=== PATIENT | male | born 1945 | race African-American/Black ===

== ENCOUNTER 2019-03-16 05:41 | Inpatient (IN) | payer OTHER ==
[2019-03-16] MEDS ORDERED: CEFAZOLIN 1 GM/50 ML (PMX) 50 ML IVPB (06:00)
[2019-03-16] MEDS: ONDANSETRON 4 MG INJ IV (07:17)
[2019-03-16] MEDS: oxyCODONE (CR) 10 MG TAB [oxyCONTIN] PO (07:17)
[2019-03-16] MEDS: LANSOPRAZOLE 30 MG CAP PO (07:17)
[2019-03-16] MEDS: LACTATED RINGER'S 1,000 ML IV (07:17)
[2019-03-16] MEDS: DEXAMETHASONE 4 MG/ML 1 ML INJ IV (07:18)
[2019-03-16] MEDS: ACETAMINOPHEN 500 MG TAB PO (07:18)
[2019-03-16] MEDS ORDERED: SEVOFLURANE 15 MIN (07:30)
[2019-03-16] MEDS: TRANEXAMIC ACID 1GM/100ML(PMX) 100 ML INTRA-OP X1 IVPB (07:30)
[2019-03-16] MEDS: TRANEXAMIC ACID 1GM/100ML(PMX) 100 ML PRE-OP X1 IVPB (07:30)
[2019-03-16] MEDS ORDERED: morphine SULFATE/PF (10 MG/10 ML) INJ (07:34)
[2019-03-16] MEDS ORDERED: PROPOFOL 20 ML (07:34)
[2019-03-16] MEDS ORDERED: ROPIVACAINE 0.5 % 30 ML VIAL (07:34)
[2019-03-16] MEDS ORDERED: MIDAZOLAM 1 MG/ML 2 ML INJ (07:34)
[2019-03-16] MEDS ORDERED: ROCURONIUM 50 MG INJ (07:34)
[2019-03-16] MEDS ORDERED: TRANEXAMIC ACID 1GM/100ML(PMX) 200 ML (08:36)
[2019-03-16] MEDS: POLYMYXIN B 500000 UNIT INJ (09:01)
[2019-03-16] MEDS: BACITRACIN 50000 UNITS INJ IRR (09:01)
[2019-03-16] MEDS: HIP PAIN COCKTAIL VANCO INJ (09:01)
[2019-03-16] MEDS ORDERED: CEFAZOLIN 1 GM INJ (09:44)
[2019-03-16] MEDS ORDERED: ONDANSETRON 4 MG INJ (09:44)
[2019-03-16] MEDS ORDERED: DEXAMETHASONE 4 MG/ML 5 ML INJ (09:44)
[2019-03-16] MEDS ORDERED: SUGAMMADEX SODIUM 200 MG/2 ML VIAL IV ×2 (09:44→11:00)
[2019-03-16] MEDS ORDERED: METOCLOPRAMIDE 10 MG INJ (09:44)
[2019-03-16] MEDS ORDERED: KETOROLAC 30 MG INJ (09:44)
[2019-03-16] MEDS ORDERED: PHENYLephrine (100 MCG/ML) 10ML SYG (09:45)
[2019-03-16] MEDS ORDERED: HETASTARCH 6% NACL 500 ML (09:49)
[2019-03-16] MEDS ORDERED: ALBUMIN HUMAN 5% 250 ML IV (10:00)
[2019-03-16] MEDS ORDERED: EPHEDrine 25 MG/5 ML SYG IV (10:00)
[2019-03-16] MEDS ORDERED: METOCLOPRAMIDE 10 MG INJ IV (10:00)
[2019-03-16] MEDS ORDERED: KETOROLAC 30 MG INJ IV (10:00)
[2019-03-16] MEDS ORDERED: ACETAMINOPHEN 500 MG TAB PO (10:00)
[2019-03-16] MEDS ORDERED: FENTAnyl 50 MCG/ML VIAL IV ×2 (10:00)
[2019-03-16] MEDS ORDERED: DIPHENHYDRAMINE 50 MG INJ IV ×2 (10:00)
[2019-03-16] MEDS ORDERED: OXYCODONE/ACETAMINOPHEN (5/325) TAB PO ×2 (10:00)
[2019-03-16] MEDS ORDERED: NALBUPHINE HCL (10 MG/1 ML) INJ IV (10:00)
[2019-03-16] MEDS ORDERED: LABETALOL HCL 20MG INJ IV (10:00)
[2019-03-16] MEDS ORDERED: hydrALAzine 20 MG INJ IV (10:00)
[2019-03-16] MEDS ORDERED: ONDANSETRON 4 MG INJ IV ×2 (10:00)
[2019-03-16] MEDS ORDERED: morphine 2 MG INJ IV ×2 (10:00)
[2019-03-16] MEDS ORDERED: HYDROmorphONE 1 MG/5 ML IV SYRINGE IV ×2 (10:00)
[2019-03-16] MEDS ORDERED: MEPERIDINE 25 MG INJ IV (10:00)
[2019-03-16] MEDS ORDERED: HYDROmorphONE 0.5 MG/0.5 ML SYG IV ×2 (10:00)
[2019-03-16] MEDS ORDERED: NALOXONE (0.4 MG/ML) INJ IV ×2 (10:00→11:30)
[2019-03-16] MEDS ORDERED: NACL 0.9% 3 ML SYG IV (11:30)
[2019-03-16] MEDS ORDERED: NA PHOSPHATE/BIPHOS 133 ML ENEMA PR (11:30)
[2019-03-16] MEDS ORDERED: SENNA/DOCUSATE NA (8.6MG/50MG) TAB PO (11:30)
[2019-03-16] MEDS: CEFAZOLIN 2 GM/50 ML (PMX) 50 ML IVPB ×2 (11:30→19:40)
[2019-03-16] MEDS ORDERED: BISACODYL 10 MG SUPP PR (11:30)
[2019-03-16] MEDS ORDERED: MAGNESIUM HYDROXIDE 30ML CUP PO (11:30)
[2019-03-16] MEDS: DOCUSATE SODIUM 100 MG CAP PO (12:57)
[2019-03-16] MEDS: GABAPENTIN 100 MG CAP PO ×2 (13:00→20:23)
[2019-03-16] MEDS: SOD CHLORIDE 0.9% 1,000 ML IV (16:00)
[2019-03-16] MEDS: HYDROCODONE/APAP (5/325) TAB PO (19:34)
[2019-03-16] MEDS: IMIPRAMINE 25 MG TAB PO (20:23)
[2019-03-17] MEDS: CEFAZOLIN 2 GM/50 ML (PMX) 50 ML IVPB (03:55)
[2019-03-17 05:05] LABS: ADD MAN DIFF? NO
[2019-03-17 05:07] LABS: BASOPHILS % 0.1 % (0.0-2.0); HEMATOCRIT 23.9 % (42.0-52.0); HEMOGLOBIN 7.5 g/dl (14.0-18.0); LYMPHOCYTES # 1.6 10^3/ul (0.8-2.9); LYMPHOCYTES % 11.9 % (15.0-51.0); MEAN CORPUSCULAR HEMOGLOBIN 28.2 pg (29.0-33.0); MEAN CORPUSCULAR HGB CONC 31.4 g/dl (32.0-37.0); MEAN CORPUSCULAR VOLUME 89.8 fl (82.0-101.0); MONOCYTES % 7.5 % (0.0-11.0); NEUTROPHILS % 79.8 % (39.0-77.0); PLATELET COUNT 152 10^3/UL (140-415); RED BLOOD COUNT 2.66 10^6/ul (4.70-6.10); RED CELL DISTRIBUTION WIDTH 16.6 % (11.5-14.5)
[2019-03-17 05:07] LABS: WHITE BLOOD COUNT 13.7 10^3/ul (4.8-10.8)
[2019-03-17] MEDS: PANTOPRAZOLE (EC) 40 MG TAB PO (05:26)
[2019-03-17 05:30] LABS: INR 1.23; PROTIME 15.6 Sec (11.9-14.9); PT RATIO 1.2
[2019-03-17 05:37] LABS: ANION GAP 6 (5-13); BLOOD UREA NITROGEN 16 mg/dl (7-20); CALCIUM 7.7 mg/dl (8.4-10.2); CARBON DIOXIDE 26 mmol/L (21-31); CHLORIDE 108 mmol/L (97-110); CREATININE 1.08 mg/dl (0.61-1.24); GLUCOSE 185 mg/dl (70-220); POTASSIUM 4.5 mmol/L (3.5-5.1); SODIUM 140 mmol/L (135-144)
[2019-03-17] MEDS: AMLODIPINE 5 MG TAB PO (09:00)
[2019-03-17] MEDS: GABAPENTIN 100 MG CAP PO ×3 (09:06→21:54)
[2019-03-17] MEDS: DOCUSATE SODIUM 100 MG CAP PO ×2 (09:06→21:54)
[2019-03-17] MEDS: CELECOXIB 100 MG CAP PO ×2 (09:06→21:54)
[2019-03-17] MEDS: ASPIRIN (EC) 81 MG TAB PO ×2 (09:06→21:54)
[2019-03-17 10:22] LABS: CHOLESTEROL 108 mg/dl (100-200)
[2019-03-17 10:22] LABS: CHOL/HDL RATIO 4.9 RATIO; HDL CHOLESTEROL 22 mg/dl (31-75); LDL CHOLESTEROL,CALCULATED 65 mg/dl; TRIGLYCERIDES 103 mg/dl (0-149)
[2019-03-17 10:33] LABS: HEMOGLOBIN A1C 6.9 % (0-5.9)
[2019-03-17 10:55] LABS: IRON 17 ug/dl (35-150)
[2019-03-17 11:06] LABS: % IRON SATURATION 6 % SAT (22-52); TOTAL IRON BINDING CAPACITY 280 ug/dl (241-421)
[2019-03-17] MEDS ORDERED: ONDANSETRON 4 MG INJ IV (11:30)
[2019-03-17 13:22] LABS: FERRITIN 24.4 ng/ml (11.1-264.0)
[2019-03-17] MEDS: oxyCODONE 5 MG TAB PO (16:49)
[2019-03-17] MEDS: HYDROCODONE/APAP (5/325) TAB PO (19:40)
[2019-03-17] MEDS: IMIPRAMINE 25 MG TAB PO (21:54)
[2019-03-18] MEDS: HYDROCODONE/APAP (5/325) TAB PO ×3 (04:35→18:32)
[2019-03-18 05:11] LABS: ABNORMAL IP MESSAGE 1; HEMATOCRIT 21.1 % (42.0-52.0); MEAN CORPUSCULAR HEMOGLOBIN 28.8 pg (29.0-33.0); MEAN CORPUSCULAR HGB CONC 32.2 g/dl (32.0-37.0); MEAN CORPUSCULAR VOLUME 89.4 fl (82.0-101.0); MEAN PLATELET VOLUME 12.2 fl (7.4-10.4); PLATELET COUNT 144 10^3/UL (140-415); POSITIVE DIFF @See below; RED BLOOD COUNT 2.36 10^6/ul (4.70-6.10); RED CELL DISTRIBUTION WIDTH 17.2 % (11.5-14.5)
[2019-03-18 05:11] LABS: WHITE BLOOD COUNT 11.3 10^3/ul (4.8-10.8)
[2019-03-18 05:18] LABS: ADD MAN DIFF? YES; HEMOGLOBIN 6.8 g/dl (14.0-18.0)
[2019-03-18 05:30] LABS: INR 1.12; PROTIME 14.5 Sec (11.9-14.9); PT RATIO 1.1
[2019-03-18 05:34] LABS: ANION GAP 3 (5-13); BLOOD UREA NITROGEN 18 mg/dl (7-20); CALCIUM 8.3 mg/dl (8.4-10.2); CARBON DIOXIDE 29 mmol/L (21-31); CHLORIDE 106 mmol/L (97-110); CREATININE 1.01 mg/dl (0.61-1.24); GLUCOSE 151 mg/dl (70-220); POTASSIUM 3.9 mmol/L (3.5-5.1); SODIUM 138 mmol/L (135-144)
[2019-03-18 05:59] LABS: BASOPHILS % 0.1 % (0.0-2.0); LYMPHOCYTES # 3.6 10^3/ul (0.8-2.9); LYMPHOCYTES % 31.8 % (15.0-51.0); MONOCYTES % 8.8 % (0.0-11.0); NEUTROPHIL # 6.6 10^3/ul (1.6-7.5); NEUTROPHILS % 58.1 % (39.0-77.0)
[2019-03-18] MEDS: PANTOPRAZOLE (EC) 40 MG TAB PO (06:00)
[2019-03-18 07:10] LABS: ANISOCYTOSIS 1+ (0-0); BAND NEUTROPHILS #M 0.4 10^3/ul (0.0-0.6); BAND NEUTROPHILS % (M) 4 % (0-4); GIANT THROMBO% (M) 2 % (0-0); LYMPHOCYTES #M 4.5 10^3/ul (0.8-2.9); LYMPHOCYTES % (M) 40 % (15-51); MONOCYTE #M 0.4 10^3/ul (0.3-0.9); MONOCYTES % (M) 4 % (0-11); PLATELET ESTIMATE NORMAL; POLYCHROMASIA 1+ (0-0); REACTIVE LYMPHOCYTES #M 0.4 10^3/ul (0.0-0.0); REACTIVE LYMPHOCYTES% (M) 4 % (0-0); SEG NEUT #M 5.5 10^3/ul (1.6-7.5); SEGMENTED NEUTROPHILS (M) % 48 % (39-77); SMUDGE%M 64 % (0-0)
[2019-03-18] MEDS: CELECOXIB 100 MG CAP PO (08:40)
[2019-03-18] MEDS: GABAPENTIN 100 MG CAP PO ×2 (08:40→13:50)
[2019-03-18] MEDS: DOCUSATE SODIUM 100 MG CAP PO (08:40)
[2019-03-18] MEDS: AMLODIPINE 5 MG TAB PO (08:40)
[2019-03-18] MEDS: ASPIRIN (EC) 81 MG TAB PO (08:40)
[2019-03-18] MEDS: KETOROLAC 15 MG INJ IV (08:41)
[2019-03-18 09:20] LABS: IMMEDIATE SPIN CROSSMATCH 1 1
[2019-03-18 12:29] LABS: ADD MAN DIFF? NO
[2019-03-18 15:17] LABS: BASOPHILS % 0.3 % (0.0-2.0); EOSINOPHILS % 0.3 % (0.0-7.0); HEMATOCRIT 23.3 % (42.0-52.0); HEMOGLOBIN 7.7 g/dl (14.0-18.0); LYMPHOCYTES # 4.3 10^3/ul (0.8-2.9); LYMPHOCYTES % 36.6 % (15.0-51.0); MEAN CORPUSCULAR HEMOGLOBIN 29.4 pg (29.0-33.0); MEAN CORPUSCULAR VOLUME 88.9 fl (82.0-101.0); MONOCYTE # 1.2 10^3/ul (0.3-0.9); MONOCYTES % 10.2 % (0.0-11.0); NEUTROPHILS % 51.3 % (39.0-77.0); PLATELET COUNT 140 10^3/UL (140-415); RED BLOOD COUNT 2.62 10^6/ul (4.70-6.10); RED CELL DISTRIBUTION WIDTH 16.6 % (11.5-14.5)
[2019-03-18 15:17] LABS: WHITE BLOOD COUNT 11.6 10^3/ul (4.8-10.8)
== END 2019-03-18 19:01 | disposition home or self-care (01) | DRG 470 ==
LOC: REC 05:41 → MS1 13:10
PROVIDERS: Pediatrics
PROC: 0SR903Z Replacement of Right Hip Joint with Ceramic Synthetic Substitute, Open Approach (ICD-10-PCS; principal; 2019-03-16 07:30)
DX: M16.11 Unilateral primary osteoarthritis, right hip (principal); I10 Essential (primary) hypertension; E78.5 Hyperlipidemia, unspecified; E66.9 Obesity, unspecified; Z68.34 Body mass index [BMI] 34.0-34.9, adult; Z87.891 Personal history of nicotine dependence; G47.00 Insomnia, unspecified; D64.9 Anemia, unspecified; R00.0 Tachycardia, unspecified
CPT/HCPCS: 36430; 72170; 73500; 73530; 80048; 80061; 82728; 83036; 83540; 85025; 85610; 86644; 86850; 86900; 86901; 86920; 88304; 88311; 97116; 97162; 97167; 97530; 97535